=== PATIENT | male | born 1960 | race Caucasian/White ===

== ENCOUNTER 2017-06-15 19:38 | Inpatient (IN) | payer MEDICAID, OTHER ==
[~2017-06-15] VITALS: Ht 162.6 cm; Wt 64.0 kg
[2017-06-15] MEDS ORDERED: ONDANSETRON HCL 4MG/2ML VIAL IV STA (23:14)
[2017-06-15 23:59] LABS: HEMATOCRIT. 37.3 % (42.0-52.0); HEMOGLOBIN. 13.2 g/dL (14.0-18.0); MEAN CORPUSCULAR HEMOGLOBIN 35.7 pg (28.0-32.0); MEAN CORPUSCULAR VOLUME 100.8 fL (80.0-94.0); MEAN PLATELET VOLUME 8.4 fl (7.4-10.4); PLATELET 96 x1000/uL (130-400)
[2017-06-16] LABS: CHLORIDE 93 mEq/L (98-107)
[2017-06-16 00:09] LABS: CARBON DIOXIDE 29 mEq/L (21-32); ETHANOL BLOOD < 10 mg/dL
[2017-06-16] MEDS ORDERED: POTASSIUM CHLORIDE 20MEQ TABLET SR PO ONE (00:15)
[2017-06-16] MEDS ORDERED: SODIUM CHLORIDE 0.9% 1,000 ML IV SCH (05:48)
[2017-06-16] MEDS ORDERED: SODIUM CHLORIDE 0.9% 1,000 ML IV ONE ×2 (05:53→05:58)
[2017-06-16] MEDS ORDERED: ACETAMINOPHEN 325MG TABLET PO PRN (06:00)
[2017-06-16 06:35] LABS: CLARITY URINE CLEAR (CLEAR); COLOR URINE ORANGE (YELLOW); GLUCOSE URINE 1+ (NEGATIVE); KETONES URINE NEGATIVE (NEGATIVE); LEUKOCYTE ESTERASE URINE 1+ (NEGATIVE); NITRITE URINE POSITIVE (NEGATIVE); OCCULT BLOOD URINE NEGATIVE (NEGATIVE); PROTEIN URINE TRACE (NEGATIVE)
[2017-06-16 09:23] LABS: PLATELET ESTIMATE DECREASED
[2017-06-16] MEDS ORDERED: IOHEXOL-300 100 ML BOTTLE ONE (14:05)
[2017-06-16] MEDS ORDERED: SODIUM CHLORIDE 0.9% 10ML VIAL ONE (14:05)
[2017-06-16 16:00] VITALS: BP 126/80
[2017-06-16 17:12] VITALS: BP 126/80
[2017-06-16] MEDS: SODIUM CHLORIDE 0.9% 1,000 ML IV SCH (18:41)
[2017-06-16 19:20] VITALS: BP 111/77
[2017-06-16] MEDS ORDERED: POTASSIUM CHLORIDE INJ 40 MEQ in DEXT 5% WATER 500 ML IV NR (20:00)
[2017-06-16 20:22] LABS: BASOPHILS % 1.1 % (0.0-2.0); EOSINOPHILS % 0.4 % (0.0-5.0); HEMOGLOBIN. 12.8 g/dL (14.0-18.0); LYMPHOCYTES % 20.7 % (20.0-50.0); MEAN CORPUSCULAR HEMOGLOBIN 35.3 pg (28.0-32.0); MEAN CORPUSCULAR VOLUME 102.6 fL (80.0-94.0); MEAN PLATELET VOLUME 8.5 fl (7.4-10.4); MONOCYTES % 12.3 % (2.0-8.0); NEUTROPHILS % 65.5 % (40.0-76.0); PLATELET 104 x1000/uL (130-400); RED BLOOD CELL COUNT 3.61 mill/uL (4.7-6.1); RED CELL DISTRIBUTION WIDTH 14.3 % (11.6-14.6)
[2017-06-16 20:35] LABS: CARBON DIOXIDE 26 mEq/L (21-32); CHLORIDE 100 mEq/L (98-107)
[2017-06-17 00:26] VITALS: BP 93/69
[2017-06-17] MEDS: SODIUM CHLORIDE 0.9% 1,000 ML IV SCH ×2 (06:24→20:09)
[2017-06-17 07:18] VITALS: BP 110/72
[2017-06-17 08:00] VITALS: BP 115/72
[2017-06-17] MEDS ORDERED: POTASSIUM CHLORIDE 20MEQ TABLET SR PO NR (09:15)
[2017-06-17 10:27] LABS: BASOPHILS % 1.5 % (0.0-2.0); EOSINOPHILS % 0.6 % (0.0-5.0); HEMATOCRIT. 36.9 % (42.0-52.0); MEAN CORPUSCULAR VOLUME 102.6 fL (80.0-94.0); MEAN PLATELET VOLUME 8.2 fl (7.4-10.4); MONOCYTES % 14.9 % (2.0-8.0); PLATELET 106 x1000/uL (130-400)
[2017-06-17 10:42] LABS: CARBON DIOXIDE 25 mEq/L (21-32); CHLORIDE 100 mEq/L (98-107); CREATINE KINASE 31 IU/L (39-308)
[2017-06-17 12:00] VITALS: BP 101/62
[2017-06-17 16:00] VITALS: BP 114/78
[2017-06-17 16:07] LABS: CLARITY URINE CLEAR (CLEAR); COLOR URINE DARK YELLOW (YELLOW); GLUCOSE URINE NEGATIVE (NEGATIVE); KETONES URINE NEGATIVE (NEGATIVE); LEUKOCYTE ESTERASE URINE TRACE (NEGATIVE); NITRITE URINE NEGATIVE (NEGATIVE); OCCULT BLOOD URINE NEGATIVE (NEGATIVE); PROTEIN URINE NEGATIVE (NEGATIVE); SPECIFIC GRAVITY URINE 1.019 (1.005-1.030); UROBILINOGEN URINE >8.0 E.U./dL (0.2-1.0)
[2017-06-17 20:00] VITALS: BP 123/67
[2017-06-17] MEDS ORDERED: ACETAMINOPHEN 650MG/20.3ML UDC GT PRN (20:00)
[2017-06-17] MEDS ORDERED: IPRATROPIUM/ALBUTEROL 0.5-3(2.5)MG/3ML NEB INH PRN (20:00)
[2017-06-17] MEDS ORDERED: DOCUSATE SODIUM 100MG CAPSULE PO PRN (20:00)
[2017-06-17] MEDS ORDERED: MAGNESIUM/ALUMINUM HYDROXIDE/SIMETHICONE 30ML UDC PO PRN (20:00)
[2017-06-17] MEDS ORDERED: LORAZEPAM 2MG/ML CPJ IV PRN (20:00)
[2017-06-17] MEDS ORDERED: POTASSIUM CHLORIDE 20MEQ TABLET SR PO SCH (20:00)
[2017-06-17] MEDS ORDERED: ACETAMINOPHEN 650MG SUPP PR PRN (20:00)
[2017-06-17] MEDS ORDERED: NA PHOS,M-B/NA PHOS,DI-BA ENEMA 118ML PR PRN (20:00)
[2017-06-17] MEDS ORDERED: GUAIFENESIN 200MG/10ML SUGAR FREE UDC PO PRN (20:00)
[2017-06-17] MEDS ORDERED: DIPHENHYDRAMINE 50MG/ML VIAL IV PRN (20:00)
[2017-06-17] MEDS ORDERED: ONDANSETRON HCL 4MG/2ML VIAL IV PRN (20:00)
[2017-06-17] MEDS ORDERED: CLONIDINE 0.1MG TABLET PO PRN (20:00)
[2017-06-17] MEDS: MULTIVITAMINS,THER W-MINERALS TABLET PO SCH (20:23)
[2017-06-17] MEDS: ENOXAPARIN 40MG/0.4ML SYR SUBCUT SCH (20:24)
[2017-06-17] MEDS: SODIUM CHLORIDE 0.9% INJ 3ML FLUSH IVF SCH (21:04)
[2017-06-18] VITALS: BP 126/70
[2017-06-18 01:49] LABS: *AMPHETAMINES SCREEN URINE NEGATIVE (NEGATIVE); *BARBITURATES SCREEN URINE NEGATIVE (NEGATIVE); *BENZODIAZEPINES SCREEN URINE NEGATIVE (NEGATIVE); *COCAINE SCREEN URINE NEGATIVE (NEGATIVE); CANNABINOID URINE SCREEN NEGATIVE (NEGATIVE); METHADONE URINE SCREEN NEGATIVE (NEGATIVE); OPIATES URINE SCREEN NEGATIVE (NEGATIVE); PHENCYCLIDINE URINE SCREEN NEGATIVE (NEGATIVE)
[2017-06-18 04:00] VITALS: BP 120/80
[2017-06-18] MEDS: SODIUM CHLORIDE 0.9% INJ 3ML FLUSH IVF SCH ×3 (05:20→22:07)
[2017-06-18 06:38] LABS: HEMATOCRIT. 33.6 % (42.0-52.0); HEMOGLOBIN. 11.4 g/dL (14.0-18.0); MEAN CORPUSCULAR HEMOGLOBIN 35.6 pg (28.0-32.0); MEAN CORPUSCULAR VOLUME 104.7 fL (80.0-94.0); MEAN PLATELET VOLUME 8.1 fl (7.4-10.4); PLATELET 115 x1000/uL (130-400); RED BLOOD CELL COUNT 3.21 mill/uL (4.7-6.1); RED CELL DISTRIBUTION WIDTH 14.5 % (11.6-14.6)
[2017-06-18 07:19] LABS: CHLORIDE 103 mEq/L (98-107)
[2017-06-18 07:34] LABS: CARBON DIOXIDE 24 mEq/L (21-32); HDL CHOLESTEROL 31 mg/dL (40-59); LDL CHOLESTEROL 73 mg/dL (5-100)
[2017-06-18 08:00] VITALS: BP 118/76
[2017-06-18] MEDS: MULTIVITAMINS,THER W-MINERALS TABLET PO SCH (09:04)
[2017-06-18] MEDS: SODIUM CHLORIDE 0.9% 1,000 ML IV SCH (09:04)
[2017-06-18 12:00] VITALS: BP 118/75
[2017-06-18] MEDS: LEVOFLOXACIN 500MG TABLET PO SCH (12:26)
[2017-06-18 16:00] VITALS: BP 120/78
[2017-06-18 20:12] VITALS: BP 135/87
[2017-06-18] MEDS: ENOXAPARIN 40MG/0.4ML SYR SUBCUT SCH (20:43)
[2017-06-18 22:01] LABS: NUCLEATED RED BLOOD CELLS 1 /100 WBC; PLATELET ESTIMATE DECREASED
[2017-06-19] VITALS: BP 124/78
[2017-06-19 04:00] VITALS: BP 116/67
[2017-06-19] MEDS: SODIUM CHLORIDE 0.9% INJ 3ML FLUSH IVF SCH ×3 (05:19→22:53)
[2017-06-19 07:54] VITALS: BP 116/75
[2017-06-19] MEDS: MULTIVITAMINS,THER W-MINERALS TABLET PO SCH (08:58)
[2017-06-19] MEDS: LEVOFLOXACIN 500MG TABLET PO SCH (11:34)
[2017-06-19 12:00] VITALS: BP 93/72
[2017-06-19 16:00] VITALS: BP 110/74
[2017-06-19 20:00] VITALS: BP 107/71
[2017-06-19] MEDS: ENOXAPARIN 40MG/0.4ML SYR SUBCUT SCH (20:07)
[2017-06-19 21:47] LABS: CHLORIDE 98 mEq/L (98-107)
[2017-06-19 21:54] LABS: CARBON DIOXIDE 26 mEq/L (21-32)
[2017-06-19 22:01] LABS: HEMATOCRIT. 34.2 % (42.0-52.0); HEMOGLOBIN. 11.7 g/dL (14.0-18.0); MEAN CORPUSCULAR HEMOGLOBIN 35.8 pg (28.0-32.0); MEAN CORPUSCULAR VOLUME 104.4 fL (80.0-94.0); MEAN PLATELET VOLUME 8.1 fl (7.4-10.4); PLATELET 159 x1000/uL (130-400); RED BLOOD CELL COUNT 3.28 mill/uL (4.7-6.1); RED CELL DISTRIBUTION WIDTH 14.3 % (11.6-14.6)
[2017-06-19 22:39] LABS: PLATELET ESTIMATE NORMAL
[2017-06-20] VITALS: BP 101/68
[2017-06-20 04:00] VITALS: BP 114/59
[2017-06-20] MEDS: SODIUM CHLORIDE 0.9% INJ 3ML FLUSH IVF SCH ×3 (05:36→21:32)
[2017-06-20 07:57] VITALS: BP 102/69
[2017-06-20] MEDS: MULTIVITAMINS,THER W-MINERALS TABLET PO SCH (08:27)
[2017-06-20 11:55] VITALS: BP 91/64
[2017-06-20] MEDS: LEVOFLOXACIN 500MG TABLET PO SCH (12:26)
[2017-06-20 16:03] VITALS: BP 103/71
[2017-06-20 20:00] VITALS: BP 101/69
[2017-06-20] MEDS: ENOXAPARIN 40MG/0.4ML SYR SUBCUT SCH (21:32)
[2017-06-21] VITALS: BP 104/63
[2017-06-21 00:19] LABS: BASOPHILS % 3.6 % (0.0-2.0); EOSINOPHILS % 0.4 % (0.0-5.0); HEMOGLOBIN. 11.7 g/dL (14.0-18.0); LYMPHOCYTES % 21.5 % (20.0-50.0); MEAN CORPUSCULAR HEMOGLOBIN 35.7 pg (28.0-32.0); MEAN CORPUSCULAR VOLUME 103.7 fL (80.0-94.0); MEAN PLATELET VOLUME 8.6 fl (7.4-10.4); MONOCYTES % 14.3 % (2.0-8.0); NEUTROPHILS % 60.2 % (40.0-76.0); PLATELET 185 x1000/uL (130-400); RED BLOOD CELL COUNT 3.28 mill/uL (4.7-6.1); RED CELL DISTRIBUTION WIDTH 14.2 % (11.6-14.6)
[2017-06-21 00:41] LABS: CARBON DIOXIDE 27 mEq/L (21-32); CHLORIDE 99 mEq/L (98-107)
[2017-06-21 04:00] VITALS: BP 109/58
[2017-06-21] MEDS: SODIUM CHLORIDE 0.9% INJ 3ML FLUSH IVF SCH ×3 (06:25→20:42)
[2017-06-21 08:00] VITALS: BP 100/66
[2017-06-21] MEDS: MULTIVITAMINS,THER W-MINERALS TABLET PO SCH (09:29)
[2017-06-21] MEDS: LEVOFLOXACIN 500MG TABLET PO SCH (11:21)
[2017-06-21 12:00] VITALS: BP 88/52
[2017-06-21 16:00] VITALS: BP 99/63
[2017-06-21 20:00] VITALS: BP 109/72
[2017-06-21] MEDS: ENOXAPARIN 40MG/0.4ML SYR SUBCUT SCH (20:38)
[2017-06-22] VITALS: BP 101/61
[2017-06-22 04:00] VITALS: BP 96/61
[2017-06-22] MEDS: SODIUM CHLORIDE 0.9% INJ 3ML FLUSH IVF SCH ×3 (05:25→20:40)
[2017-06-22 08:00] VITALS: BP 97/61
[2017-06-22] MEDS: MULTIVITAMINS,THER W-MINERALS TABLET PO SCH (08:27)
[2017-06-22] MEDS: LEVOFLOXACIN 500MG TABLET PO SCH (10:22)
[2017-06-22 12:00] VITALS: BP 92/61
[2017-06-22 16:00] VITALS: BP 97/73
[2017-06-22 20:00] VITALS: BP 107/76
[2017-06-22] MEDS: ENOXAPARIN 40MG/0.4ML SYR SUBCUT SCH (20:40)
[2017-06-23] VITALS: BP 102/54
[2017-06-23 04:00] VITALS: BP 108/63
[2017-06-23] MEDS: SODIUM CHLORIDE 0.9% INJ 3ML FLUSH IVF SCH ×3 (06:00→21:52)
[2017-06-23 08:00] VITALS: BP 99/57
[2017-06-23] MEDS: MULTIVITAMINS,THER W-MINERALS TABLET PO SCH (08:21)
[2017-06-23] MEDS: LEVOFLOXACIN 500MG TABLET PO SCH (11:49)
[2017-06-23 12:00] VITALS: BP 93/62
[2017-06-23 20:00] VITALS: BP 93/56
[2017-06-23] MEDS: ENOXAPARIN 40MG/0.4ML SYR SUBCUT SCH (21:52)
[2017-06-24] VITALS: BP 96/62
[2017-06-24 04:00] VITALS: BP 98/57
[2017-06-24] MEDS: SODIUM CHLORIDE 0.9% INJ 3ML FLUSH IVF SCH ×3 (06:09→21:08)
[2017-06-24 07:51] VITALS: BP 103/69
[2017-06-24] MEDS: MULTIVITAMINS,THER W-MINERALS TABLET PO SCH (09:11)
[2017-06-24 11:49] VITALS: BP 122/68
[2017-06-24] MEDS: LEVOFLOXACIN 500MG TABLET PO SCH (12:18)
[2017-06-24 16:00] VITALS: BP 100/62
[2017-06-24 20:00] VITALS: BP 102/60
[2017-06-24] MEDS: ENOXAPARIN 40MG/0.4ML SYR SUBCUT SCH (21:08)
[2017-06-25] VITALS: BP 105/58
[2017-06-25 04:00] VITALS: BP 101/57
[2017-06-25] MEDS: SODIUM CHLORIDE 0.9% INJ 3ML FLUSH IVF SCH ×3 (06:26→20:54)
[2017-06-25 08:03] VITALS: BP 101/64
[2017-06-25] MEDS: MULTIVITAMINS,THER W-MINERALS TABLET PO SCH (09:35)
[2017-06-25] MEDS: LEVOFLOXACIN 500MG TABLET PO SCH (11:34)
[2017-06-25 12:00] VITALS: BP 90/62
[2017-06-25 16:00] VITALS: BP_SYST 108; BP_SYST 124; BP_DIAS 47; BP_DIAS 78
[2017-06-25 20:00] VITALS: BP 95/52
[2017-06-25] MEDS: ENOXAPARIN 40MG/0.4ML SYR SUBCUT SCH (20:55)
[2017-06-26] VITALS: BP 92/56
[2017-06-26 04:00] VITALS: BP 89/65
[2017-06-26] MEDS: SODIUM CHLORIDE 0.9% INJ 3ML FLUSH IVF SCH ×2 (05:27→14:06)
[2017-06-26 05:55] LABS: HEMATOCRIT 36.3 % (42.0-52.0); HEMOGLOBIN 12.5 g/dL (14.0-18.0); MEAN CORPUSCULAR HEMOGLOBIN 36.1 pg (28.0-32.0); MEAN CORPUSCULAR VOLUME 104.8 fL (80.0-94.0); PLATELET 266 x1000/uL (130-400); RED BLOOD CELL COUNT 3.46 mill/uL (4.7-6.1); RED CELL DISTRIBUTION WIDTH 14.2 % (11.6-14.6)
[2017-06-26 08:10] VITALS: BP 100/57
[2017-06-26] MEDS: MULTIVITAMINS,THER W-MINERALS TABLET PO SCH (09:00)
[2017-06-26 12:02] VITALS: BP 96/66
[2017-06-26 16:19] VITALS: BP 98/61
[2017-06-26 20:33] VITALS: BP 97/62
[2017-06-27] VITALS (7 sets, daily range): BP systolic 85–97; BP diastolic 51–59
[2017-06-27] MEDS: MULTIVITAMINS,THER W-MINERALS TABLET PO SCH (09:24)
[2017-06-27] MEDS: SODIUM CHLORIDE 0.9% INJ 3ML FLUSH IVF SCH ×2 (12:47→22:00)
[2017-06-27] MEDS: ENOXAPARIN 40MG/0.4ML SYR SUBCUT SCH (20:00)
[2017-06-28] VITALS: BP 101/56
[2017-06-28 04:00] VITALS: BP 102/60
[2017-06-28] MEDS: SODIUM CHLORIDE 0.9% INJ 3ML FLUSH IVF SCH ×3 (06:00→21:06)
[2017-06-28 08:00] VITALS: BP 102/62
[2017-06-28] MEDS: MULTIVITAMINS,THER W-MINERALS TABLET PO SCH (09:14)
[2017-06-28 12:10] VITALS: BP 102/65
[2017-06-28 16:14] VITALS: BP 97/54
[2017-06-28 20:19] VITALS: BP 94/60
[2017-06-28] MEDS: ENOXAPARIN 40MG/0.4ML SYR SUBCUT SCH (21:06)
[2017-06-29 00:28] VITALS: BP 96/59
[2017-06-29 04:00] VITALS: BP 99/55
[2017-06-29] MEDS: SODIUM CHLORIDE 0.9% INJ 3ML FLUSH IVF SCH (06:31)
[2017-06-29 08:22] VITALS: BP 96/58
[2017-06-29] MEDS: MULTIVITAMINS,THER W-MINERALS TABLET PO SCH (08:45)
[2017-06-29 12:54] VITALS: BP 90/54
[2017-06-29 16:25] VITALS: BP 100/63
[2017-06-29] MEDS ORDERED: SODIUM CHLORIDE 0.9% INJ 3ML FLUSH IVF ONE (16:45)
[2017-06-29 20:00] VITALS: BP 96/60
[2017-06-29] MEDS: ENOXAPARIN 40MG/0.4ML SYR SUBCUT SCH (20:58)
[2017-06-29 22:10] LABS: CHLORIDE 102 mEq/L (98-107)
[2017-06-29 22:14] LABS: BASOPHILS % 3.2 % (0.0-2.0); EOSINOPHILS % 0.9 % (0.0-5.0); HEMATOCRIT. 34.9 % (42.0-52.0); LYMPHOCYTES % 22.9 % (20.0-50.0); MEAN CORPUSCULAR HEMOGLOBIN 35.8 pg (28.0-32.0); MEAN CORPUSCULAR VOLUME 104.2 fL (80.0-94.0); MEAN PLATELET VOLUME 9.3 fl (7.4-10.4); MONOCYTES % 11.9 % (2.0-8.0); NEUTROPHILS % 61.1 % (40.0-76.0); PLATELET 238 x1000/uL (130-400); RED BLOOD CELL COUNT 3.35 mill/uL (4.7-6.1); RED CELL DISTRIBUTION WIDTH 14.3 % (11.6-14.6)
[2017-06-29 22:19] LABS: CARBON DIOXIDE 29 mEq/L (21-32)
[2017-06-30] VITALS: BP 95/59
[2017-06-30 04:00] VITALS: BP 91/55
[2017-06-30 08:00] VITALS: BP 96/58
[2017-06-30] MEDS: MULTIVITAMINS,THER W-MINERALS TABLET PO SCH (08:38)
[2017-06-30 11:44] VITALS: BP 89/53
[2017-06-30 15:46] VITALS: BP 90/55
[2017-06-30 20:00] VITALS: BP 90/51
[2017-06-30] MEDS: ENOXAPARIN 40MG/0.4ML SYR SUBCUT SCH (21:33)
[2017-07-01] VITALS: BP 91/47
[2017-07-01 04:00] VITALS: BP 101/55
[2017-07-01 08:00] VITALS: BP 116/79
[2017-07-01] MEDS: MULTIVITAMINS,THER W-MINERALS TABLET PO SCH (09:31)
[2017-07-01 12:00] VITALS: BP 95/52
[2017-07-01 17:17] VITALS: BP 97/61
[2017-07-01] MEDS: ENOXAPARIN 40MG/0.4ML SYR SUBCUT SCH (20:48)
[2017-07-01 20:50] VITALS: BP 102/65
[2017-07-02 00:17] VITALS: BP 104/56
[2017-07-02 04:00] VITALS: BP 98/60
[2017-07-02 08:00] VITALS: BP 92/56
[2017-07-02] MEDS: MULTIVITAMINS,THER W-MINERALS TABLET PO SCH (09:44)
[2017-07-02 12:00] VITALS: BP 102/56
[2017-07-02 16:00] VITALS: BP 100/54
[2017-07-02 20:00] VITALS: BP 115/67
[2017-07-02] MEDS: ENOXAPARIN 40MG/0.4ML SYR SUBCUT SCH (21:07)
[2017-07-03] VITALS: BP 97/58
[2017-07-03 04:00] VITALS: BP 99/57
[2017-07-03] MEDS: MULTIVITAMINS,THER W-MINERALS TABLET PO SCH (08:20)
[2017-07-03 09:18] VITALS: BP 100/61
[2017-07-03 12:27] VITALS: BP 105/59
[2017-07-03 16:35] VITALS: BP 104/63
[2017-07-03 20:00] VITALS: BP 99/61
[2017-07-04] VITALS: BP 100/60
[2017-07-04 04:00] VITALS: BP 97/57
[2017-07-04 08:00] VITALS: BP 110/69
[2017-07-04] MEDS: MULTIVITAMINS,THER W-MINERALS TABLET PO SCH (10:46)
[2017-07-04 12:00] VITALS: BP 105/64
[2017-07-04 16:00] VITALS: BP 108/62
[2017-07-04 20:00] VITALS: BP 103/64
[2017-07-04] MEDS: ENOXAPARIN 40MG/0.4ML SYR SUBCUT SCH ×2 (20:24→20:25)
[2017-07-05] VITALS: BP 96/60
[2017-07-05 04:00] VITALS: BP 93/54
[2017-07-05 06:34] LABS: EOSINOPHILS % 1.5 % (0.0-5.0); HEMATOCRIT. 37.8 % (42.0-52.0); HEMOGLOBIN. 12.7 g/dL (14.0-18.0); LYMPHOCYTES % 31.3 % (20.0-50.0); MEAN CORPUSCULAR HEMOGLOBIN 35.2 pg (28.0-32.0); MEAN CORPUSCULAR VOLUME 104.7 fL (80.0-94.0); MEAN PLATELET VOLUME 9.7 fl (7.4-10.4); MONOCYTES % 10.9 % (2.0-8.0); NEUTROPHILS % 54.3 % (40.0-76.0); PLATELET 204 x1000/uL (130-400); RED BLOOD CELL COUNT 3.61 mill/uL (4.7-6.1); RED CELL DISTRIBUTION WIDTH 14.1 % (11.6-14.6)
[2017-07-05 06:48] LABS: CARBON DIOXIDE 28 mEq/L (21-32); CHLORIDE 106 mEq/L (98-107)
[2017-07-05 07:46] VITALS: BP 99/53
[2017-07-05] MEDS: MULTIVITAMINS,THER W-MINERALS TABLET PO SCH (08:47)
[2017-07-05 11:47] VITALS: BP 97/61
[2017-07-05 16:00] VITALS: BP 101/61
== END 2017-07-05 16:45 | disposition home or self-care (01) | DRG 775 ==
LOC: ER 21:07 → 6WST 06-16 05:50 → CANRESERV 06-16 11:45 → ENRESERV 06-16 12:05 → 6WST 06-18 08:53
PROVIDERS: ADMIT Family Medicine; ATTEND Family Medicine
DX: F10.10 Alcohol abuse, uncomplicated (principal); G93.41 Metabolic encephalopathy; E46 Unspecified protein-calorie malnutrition; E87.1 Hypo-osmolality and hyponatremia; E86.0 Dehydration; E87.6 Hypokalemia; N39.0 Urinary tract infection, site not specified; R41.82 Altered mental status, unspecified; F17.200 Nicotine dependence, unspecified, uncomplicated; Z59.0 Homelessness; Z86.73 Personal history of transient ischemic attack (TIA), and cerebral infarction without residual deficits; Z90.49 Acquired absence of other specified parts of digestive tract; Z68.24 Body mass index [BMI] 24.0-24.9, adult
CPT/HCPCS: 36415; 70450; 71010; 73552; 73560; 74177; 80048; 80053; 80061; 80076; 80305; 81001; 82248; 82550; 83690; 85025; 85027; 86850; 86900; 96361; 96374; 97116; 97162; 97530; 99285; 99406; A4216; C1893; G0482; J1650; J2405; J3480; J7030; J7060; Q9967